=== PATIENT | female | born 2000 | race Caucasian/White ===

== ENCOUNTER → 2025-06-03 | Outpatient (CLI) | payer OTHER, SELFPAY ==
--- NOTE | 2025-06-03 12:52 | RAD_ITS ---
PROCEDURE: FINGER(S) MIN 2 VIEWS 06/03/2025 REASON FOR EXAM: LEFT MIDDLE FINGER CRUSH INJURY TECHNIQUE: Three-view left 3rd finger Laterality: Left COMPARISON: None. RAD/Finger(s) Min 2 Views IMPRESSION: Fine evaluation is limited by overlying bandage, in the distal phalanx of the l eft 3rd finger. Given the aforementioned limitations, there is probably a nondisplaced distal t uft fracture, although not definitively so No additional fracture site is seen. Reading Location: [id number]
== END | disposition home or self-care (01) ==
PROVIDERS: Referring Provider Physician Assistant; Visit Provider Physician Assistant
DX: S60.132A Contusion of left middle finger with damage to nail, initial encounter (principal)
CPT/HCPCS: 73140